=== PATIENT | female | born 1960 | race Caucasian/White ===

== ENCOUNTER → 2016-02-14 | Outpatient (CLI) | payer OTHER ==
[~2016-02-14] MED LIST: HYDR-3535 PO; Z.0.NO CURRENT MEDS
[2016-02-14 12:42] LABS: AUTOMATED NEUTROPHIL # 3.6 TH/MM3 (1.8-7.7); BASOPHIL % 0.3 % (0.0-2.0); EOSINOPHIL # 0.1 TH/MM3 (0-0.4); EOSINOPHIL % 1.5 % (0.0-4.0); HEMATOCRIT 45.4 % (35.0-46.0); HEMO FLAGS DIFF FINAL; LYMPH % 47.4 % (9.0-44.0); MEAN CORPUSCULAR HEMOGLOBIN 30.6 PG (27.0-34.0); MEAN CORPUSCULAR HGB CONC 34.4 % (32.0-36.0); MONO % 7.6 % (0.0-8.0); NEUT % 43.2 % (16.0-70.0); PLATELET COUNT 233 TH/MM3 (150-450); RED CELL DISTRIBUTION WIDTH 12.8 % (11.6-17.2); WHITE BLOOD COUNT 8.4 TH/MM3 (4.0-11.0)
[2016-02-14 12:54] LABS: APTT (PATIENT) 23.4 SEC (24.3-30.1); PROTHROMBIN TIME - PATIENT 10.5 SEC (9.8-11.6)
[2016-02-14 13:05] LABS: ALT (GPT) 55 U/L (10-53); ANION GAP 6 MEQ/L (5-15); AST (GOT) 19 U/L (15-37); BICARBONATE 30.4 MEQ/L (21.0-32.0); BLOOD UREA NITROGEN 8 MG/DL (7-18); CHLORIDE 108 MEQ/L (98-107); GLOMERULAR FILTRATION RATE 70 ML/MIN (>89); GLUCOSE,FASTING 93 MG/DL (74-99); POTASSIUM 4.5 MEQ/L (3.5-5.1); SODIUM (NA) 144 MEQ/L (136-145)
[2016-02-14 13:08] LABS: ALKALINE PHOSPHATASE 92 U/L (45-117); TOTAL BILIRUBIN ADULT 0.5 MG/DL (0.2-1.0)
[2016-02-14 13:11] LABS: BLOOD, URINE NEG (NEG); COMMENT (UR) CULT NOT INDICATED; CULTURE IF INDICATED CULT NOT INDICATED; GLUCOSE,URINE NEG (NEG); KETONE, URINE NEG (NEG); NITRITE,URINE NEG (NEG); SQUAMOUS EPITHELIAL CELL URINE 1 /hpf (0-5); URINE COLOR YELLOW (YELLW/STRAW)
--- NOTE | 2016-02-14 13:36 | RADRPT ---
EXAM DATE/TIME: 02/14/2016 12:57 [facility] COMPARISON: No previous studies available for comparison. INDICATIONS : Evaluate for penumonia, penumothorax, or communicable disease. Pre op for cervical spine surgery. MEDICAL HISTORY : Hypercholesterolemia. SURGICAL HISTORY : Cholecystectomy. Hysterectomy. Oophorectomy. ENCOUNTER: Initial ACUITY: 1 day PAIN SCORE: 0/10 LOCATION: chest FINDINGS: PA and lateral views of the chest demonstrate the lungs to be symmetrically aerated without evidence of mass, infiltrate or effusion. The cardiomediastinal contours are unremarkable. Osseous structure s are intact. CONCLUSION: No acute disease. Jace Ronquillo MD on February 14, 2016 at 13:34 Board Certified Radiologist. This report was verified electronically.
--- NOTE | 2016-02-15 14:22 | EKG ---
Date Performed: 02/14/2016 Time Performed: 12:36:40 PTAGE: 55 years EKG: Sinus rhythm WITH OCCASIONAL VENTRICULAR PREMATURE COMPLEXES BORDERLINE ECG NO PREVIOUS TRACING DOCTOR: Veronica Stover Interpretating Date/Time 02/15/2016 14:21:00
== END ==
LOC: CPRE 11:59
PROVIDERS: ATTEND Neurological Surgery
DX: Z01.810 Encounter for preprocedural cardiovascular examination (principal); Z01.811 Encounter for preprocedural respiratory examination; Z01.812 Encounter for preprocedural laboratory examination; Z01.818 Encounter for other preprocedural examination; Z79.01 Long term (current) use of anticoagulants; M50.21 Other cervical disc displacement, high cervical region; R94.31 Abnormal electrocardiogram [ECG] [EKG]
CPT/HCPCS: 36415; 71020; 80053; 81001; 85025; 85610; 85730; 93005

== ENCOUNTER 2016-02-22 12:49 | Inpatient (IN) | payer OTHER ==
[~2016-02-22] VITALS: Ht 170.2 cm; Wt 87.3 kg
[~2016-02-22 12:49] MED LIST changes: -HYDR-3535 PO; +LACTATED RINGER'S 1000 ML INJ 1,000 ML IV ONE; +NEOSTIGMINE 3 MG/3 ML SYR IV ONE; +ONDANSETRON HCL 4 MG/2 ML VIAL IV PUSH ONE; +PROPOFOL 200 MG/20 ML AMP IV ONE; -Z.0.NO CURRENT MEDS; +ePHEDrine/NS 50 MG/5 ML SYR IV ONE
[2016-02-22] MEDS ORDERED: LACTATED RINGER'S 1000 ML IV SCH (13:30)
[2016-02-22] MEDS: SODIUM CHLORID 0.9% 500 ML IV SCH ×2 (13:30→22:37)
[2016-02-22] MEDS ORDERED: METOPROLOL TARTRATE 25 MG TAB PO PRN (13:30)
[2016-02-22] MEDS ORDERED: INSULIN HUMAN REGULAR 1,000 UNITS/10 ML VIAL SQ PRN (13:30)
[2016-02-22 13:35] VITALS: BP 137/68; PULSE 85; RESP 18; TEMP 98.7; O2SAT 98
[2016-02-22] MEDS ORDERED: ceFAZolin 2 GM PREMIX 50 ML ONE (15:58)
[2016-02-22] MEDS ORDERED: SODIUM CHLOR 0.9% 250 ML INJ 250 ML ONE (15:58)
[2016-02-22] MEDS ORDERED: VANCOMYCIN HCL 1000 MG VIAL ONE (15:58)
[2016-02-22] MEDS ORDERED: GELATIN 12 MM/7 MM FOAM ONE (15:58)
[2016-02-22] MEDS ORDERED: GENTAMICIN SULFATE 80 MG/2 ML VIAL ONE (15:58)
[2016-02-22] MEDS ORDERED: THROMBIN (TOPICAL) 5,000 UNIT VIAL ONE (15:58)
[2016-02-22] MEDS ORDERED: MICROFIBRILLAR COLLAGEN HEMOSTAT 70 X 35 MM BANDAGE ONE (15:58)
[2016-02-22] MEDS: ceFAZolin 2 GM PREMIX 50 ML IV SCH (17:34)
[2016-02-22] MEDS ORDERED: ACETAMINOPHEN 1000 MG/100 ML VIAL IV ONE (19:05)
[2016-02-22] MEDS ORDERED: NS + KCL 20 MEQ INJ 1,000 ML IV SCH (20:28)
[2016-02-22] MEDS ORDERED: HYDR-3535 PO (20:29)
[2016-02-22] MEDS ORDERED: CYCLOBENZAPRINE HCL 10 MG TAB PO PRN (20:30)
[2016-02-22] MEDS ORDERED: ONDANSETRON HCL 4 MG/2 ML VIAL IV PRN (20:30)
[2016-02-22] MEDS ORDERED: ACETAMINOPHEN/HYDROcodone 325 MG/10 MG TAB PO PRN (20:30)
[2016-02-22] MEDS ORDERED: SODIUM CHLORIDE 0.9% FLUSH 5 ML FLUSH IVF PRN (20:30)
[2016-02-22] MEDS ORDERED: MENTHOL LOZENGE SUCK-ON PRN (20:30)
[2016-02-22] MEDS ORDERED: MORPHINE SULFATE 4 MG/ML INJ IV PUSH PRN ×2 (20:30)
[2016-02-22] MEDS ORDERED: BISACODYL 10 MG SUPP PR PRN (20:30)
[2016-02-22] MEDS ORDERED: ACETAMINOPHEN 325 MG TAB PO PRN (20:30)
[2016-02-22] MEDS ORDERED: fentaNYL CITRATE 250 MCG/5 ML AMP ONE (20:57)
[2016-02-22] MEDS: SODIUM CHLORIDE 0.9% FLUSH 5 ML FLUSH IVF SCH (21:00)
[2016-02-22] MEDS: DOCUSATE SODIUM 100 MG CAP PO SCH (21:00)
[2016-02-22] MEDS ORDERED: *morphine SULFATE 8 MG/ML PERIprocedure ONLY ONE (21:10)
--- NOTE | 2016-02-22 21:23 | RADRPT ---
EXAM DATE/TIME: 02/22/2016 17:32 [facility] COMPARISON: No previous studies available for comparison. INDICATIONS : C6-C7 discectomy with artificial disc placement MEDICAL HISTORY : None. SURGICAL HISTORY : None. ENCOUNTER: Initial ACUITY: 1 day PAIN SCORE: Non-responsive. LOCATION: Cervical C6-C7 FINDINGS: Two projection examination was performed. There is normal alignment and curvature of the vertebral b odies down to the level of C7. There is an artificial disc at the C6-C7 level. CONCLUSION: Artificial disc at the C6-C7 level. Tristan Blackman MD on February 22, 2016 at 21:20 Board Certified Radiologist. This report was verified electronically.
[2016-02-22] MEDS ORDERED: PROMETHAZINE INJ 25 MG/ML VIAL ONE (21:24)
[2016-02-22] MEDS ORDERED: *RESP: ALBUTEROL 2.5 MG/3 ML NEB (PRN) PERIprocedural Use ONLY NEB ONE (21:34)
[2016-02-22] MEDS ORDERED: DO NOT ADM ANY ANTICOAGULANT DRUGS XX PRN (21:45)
[2016-02-22] MEDS ORDERED: DEXAMETHASONE SOD PHOS 4 MG/ML VIAL IV SCH (22:00)
[2016-02-22 22:45] VITALS: BP 113/58; PULSE 79; RESP 16; TEMP 97.7; O2SAT 96
[2016-02-22] MEDS: DEXAMETHASONE SOD PHOS 4 MG/ML VIAL IV SCH (23:43)
[2016-02-23] MEDS: ACETAMINOPHEN/HYDROcodone 325 MG/10 MG TAB PO PRN ×4 (00:15→14:04)
[2016-02-23 03:30] VITALS: BP 114/61; PULSE 79; RESP 16; TEMP 97.9; O2SAT 98
[2016-02-23] MEDS: ceFAZolin 2 GM PREMIX 50 ML IV SCH ×2 (04:30→11:54)
[2016-02-23] MEDS: DEXAMETHASONE SOD PHOS 4 MG/ML VIAL IV SCH ×2 (06:11→11:54)
[2016-02-23 08:00] VITALS: BP 121/69; PULSE 73; RESP 18; TEMP 97.3; O2SAT 91
[2016-02-23] MEDS ORDERED: PANTOPRAZOLE SOD 40 MG DELAYED RELEASE TAB PO SCH (09:00)
[2016-02-23] MEDS: DOCUSATE SODIUM 100 MG CAP PO SCH (09:09)
[2016-02-23] MEDS: SODIUM CHLORIDE 0.9% FLUSH 5 ML FLUSH IVF SCH (09:09)
--- NOTE | 2016-02-23 10:33 | HHI.NSPN ---
History Chief Complaint: Incisional neck discomfort. Interval History 02/23/16: Pt doing well. Complains of mild incisional soreness. Numbness in right finger tips stable, paresthesias in RUE resolved. Pt ambulating around room. Cervical collar in place. Tolerating diet. Review of Systems General: Negative for: fever, chills, insomnia Respiratory: Negative for: shortness of breath, cough, sputum Cardiovascular: Negative for: chest pain Gastrointestinal: Negative for: nausea, vomitting, diarrhea, constipation Exam Results Vital Signs Date Time Temp Pulse Resp B/P Pulse Ox O2 Delivery O2 Flow Rate FiO2 02/23/16 08:00 97.3 73 18 121/69 91 02/22/16 22:00 Nasal Cannula 4 Intake and Output 02/22/16 02/22/16 02/23/16 08:00 16:00 00:00 Intake Total 1000 ml 2000 ml Output Total 700 ml Balance 1000 ml 1300 ml Physical Examination Resp: CTA bilaterally Heart: NSR no murmurs Abd: Soft positive bs Skin No cyanosis or erythema. New bandage placed. Muscle: Moves all 4 extremities well. Pt ambulating around room. Neuro: Pt awake and alert. Follows commands well. Speech clear and appropriate. Lab, Micro, Other Results 02/22/16 02/22/16 02/23/16 15:00 23:00 07:00 Intake Total 3000 ml 1115 ml Output Total 700 ml 750 ml Balance 2300 ml 365 ml Intake Oral 480 ml IV Total 1200 ml 635 ml Other 1800 ml Output Urine Total 100 ml 750 ml Estimated Blood Loss 100 ml Other 500 ml # Voids 1 Medical Decision Making Impression and Plan A: 55 y/o FM s/p C6/C7 artificial disc placement. P: Discharge pt home. Discussed restrictions. Follow up with Dr. Montoya. Jace Terrazas Feb 23, 2016 10:33 am
--- NOTE | 2016-02-23 11:30 | PD.OP ---
Operative Report Date of Surgery: Feb 22, 2016 Preoperative Diagnosis: C6-7 disk herniation Postoperative Diagnosis: C6-7 disk herniation Procedure: C6-7 anterior cervical discectomy and arthroplasty using Mobi C Anesthesia: general Surgeon: Hussein Montoya Regional Sales Engineer(s): Krysten Lawler Operation and Findings: INDICATIONS FOR THE PROCEDURE Ms Maldonado is a 55 year-old male who presented with intractable neck pain and clinical evidence of left C7 cervical radiculopathy. She was found to have a disk herniation at C6-7 causing significant mass effect on the nerve roots. He has failed multiple modalities of nonsurgical treatment including physical therapy, analgesics, antiinflammatories, and pain management with multiple epidural steroid injections. The severity of his pain and symptoms were affecting her quality of life. An anterior cervical discectomy and arthroplasty were indicated. The [id number] details of the surgical procedure, indications, alternatives, risks and potential complications were fully discussed with the patient. The patient fully understood. All his questions were answered. No guarantees were given. She voiced requesting the procedure and signed informed consents. She was offered the alternative of delaying the procedure and continuing with nonsurgical management. DETAILS OF THE SURGICAL PROCEDURE SURGICAL APPROACH A skin incision was made along the middle to inferior cervical crease with a # 10 blade. The dissection was carried out through the platysma exposing the sternocleidomastoid muscle. The cervical spine was approached following the fascial layers of the neck, just medial to the anterior border of the sternocleidomastoid and carotid sheath by a combination of sharp and dull dissection. The omohyoid muscle was identified and carefully dissected laterally and the deep cervical fascia was carefully opened. The longus colli muscles were retracted to each side of the midline. A marker was placed at the C6-7 disc space and a cross-table lateral x-ray performed with a C-arm. An AP xray was then obtained as well, and the midline of the disk space was defined. SURGICAL DECOMPRESSION In order to decompress the anterior surface of the spinal cord it was necessary to perform a microsurgical resection of the disk. At this point in the procedure the operating microscope was draped in the usual sterile fashion and brought to the field. The rest of the surgical procedure was performed using microdissection technique with the exception of the closure. Under the operative microscopic a self-retaining retractor was placed underneath the longus colli muscle. The annulus was incised with a #15 blade and microdiscectomy was then carefully carried out using angled curets and pituitary forceps. The patient had a large disk extrusion which was producing mass affect on the exiting nerve root. This was carefully dissected with a nerve hock and resected with a think foot plate 2 mm Kerrison under high magnification. The posterior longitudinal ligament was then elevated with an angled curet and incised with a 15 bladed knife. A careful resection of the posterior longitudinal ligament was carried out using a thin footplate 2 mm Kerrison. Extruded disk fragments causing mechanical compression over the exiting C7 nerve root were carefully dissected. The decompression was then carried out laterally, and a bilateral foraminotomy was performed with a 2 mm thin foot Kerrison. The epidural space was the systematically assessed with a nerve hook in search for disk fragments of scar tissue. An excellent decompression was achieved in both, the dural sac and bilateral exiting nerve roots. The incision was then irrigated with a large amount of antibiotic solution INTERBODY ARTHROPLASTY In order to avoid collapse of the disk space which would result in bilateral foraminal stenosis, and in order to maintain disk space height and function minimally development of adjacent level degeneration, it was necessary to place an interbody device. At this point of the procedure, gentle distraction was applied. The size of the interbody device was then assessed using a trial, and a cross table xray was done for confirmation of appropriate size and position of the device. Then the disk space was irrigated with antibiotic solution, and a 15mm by 6mm Mobi C artificial disk was carefully impacted into the disc space C6-7. An excellent position of the device was achieved. This was confirmed anatomically by feeling the space posterior to the implant and distance to the anterior surface of the dural sac. Radiological confirmation of the position was performed with a cross table AP and lateral X-ray views, performed with the C-arm. COMPLETION OF THE SURGICAL PROCEDURE Once that each interbody device was in an appropriate position, the distraction was discontinued. The position of the device as well as alignment of the spine were assessed anatomically by direct visualization, and radiologically by performing an AP and lateral X-ray of the cervical spine with the C-arm. The position of the implant was excellent. The incision was irrigated with several liters of antibiotic solution. Hemostasis was achieved with a bipolar. A 7 mm Buzz-Marquez drain was left in the prevertebral space and externalized through a separate stab incision. The incision was then closed in layers. 3-0 Vicryl with interrupted sutures was used to close the platysma and subcutaneous tissue. The skin was closed with 4- 0 running subcuticular Vicryl and Dermabond was applied to the skin. The drain was secured with a 3-0 nylon. At the end of the procedure the sponge, needle and instrument counts were all correct. The estimated blood loss was less than 30-40 cc. No blood transfusion was given. No intraoperative complications occurred. The patient received prophylactic antibiotics. The patient was then extubated and transferred to the recovery room in stable condition. Hussein Montoya MD Feb 23, 2016 11:30
--- NOTE | 2016-02-26 14:18 | HHI.DS ---
Discharge Summary Admission Date Feb 22, 2016 at 20:28 Discharge Date: Feb 23, 2016 Admitting Diagnosis s/p ACD arthroplasty (1) S/P cervical discectomy Brief History Ms Maldonado is a 55 year-old male who presented with intractable neck pain and clinical evidence of left C7 cervical radiculopathy. She was found to have a disk herniation at C6-7 causing significant mass effect on the nerve roots. He has failed multiple modalities of nonsurgical treatment including physical therapy, analgesics, antiinflammatories, and pain management with multiple epidural steroid injections. The severity of his pain and symptoms were affecting her quality of life. An anterior cervical discectomy and arthroplasty were indicated. Imaging Last Impressions Cervical Spine X-Ray 02/22/16 0000 Signed Impressions: Service Date/Time: Monday, February 22, 2016 17:32 - CONCLUSION: Artificial disc at the C6-C7 level. Tristan Blackman MD Hospital Course Ms. Hawthorne is a 55 year old female who underwent a C6-7 anterior cervical discectomy and arthroplasty using Mobi C on Feb 22, 2016. Her surgery went well without complications. She remained stable and was discharged home the following day. Pt Condition on Discharge: Stable Discharge Disposition: Discharge Home Discharge Instructions DIET: Follow Instructions for: As Tolerated, No Restrictions ACTIVITIES You can perform: Weight Bearing As Eladio Activities to Avoid: Lifting/Bending, Prolonged Standing, Strenuous Activity, Bathing, Driving ADDITIONAL Activity Instructio: Cervical collar on at all times. New Medications: Hydrocodone-Acetaminophen (Lortab) 10-325 Mg Tab 1 TAB PO Q8HR PRN PAIN #90 Ref 0 TAB Yesenia Hogan Feb 26, 2016 14:18
== END 2016-02-23 14:31 | disposition home or self-care (01) | DRG 518 ==
LOC: HSDC 12:49 → HSDI 20:28 → N06B 22:18
PROVIDERS: ADMIT Neurological Surgery; ATTEND Neurological Surgery
PROC: 0RB30ZZ Excision of Cervical Vertebral Disc, Open Approach (ICD-10-PCS; 2016-02-22)
PROC: 0RR30JZ Replacement of Cervical Vertebral Disc with Synthetic Substitute, Open Approach (ICD-10-PCS; principal; 2016-02-22 17:11)
DX: M50.123 Cervical disc disorder at C6-C7 level with radiculopathy (principal); F17.210 Nicotine dependence, cigarettes, uncomplicated
CPT/HCPCS: 72040; 76000; 94150; 94640; C1713; G8987-GP; G8988-GP; J0131; J0690; J1100; J1580; J2270; J2405; J2550; J2710; J3010; J3370; J3480; J7050; J7120; J7613; L0150; L0172